=== PATIENT | female | born 1970 | race Caucasian/White ===

== ENCOUNTER 2017-12-13 09:38 | Emergency (ER) | payer OTHER ==
[~2017-12-13] VITALS: Ht 165.1 cm; Wt 55.0 kg
[2017-12-13 09:45] VITALS: BP 169/79; PULSE 92; RESP 18; TEMP 98.2; O2SAT 100
--- NOTE | 2017-12-13 10:49 | PD ---
HPI Chief Complaint: Cold / Flu Symptoms Time Seen by Provider: 10:46 Travel History International Travel<30 days: No Contact w/Intl Traveler<30days: No Traveled to known affect area: No History of Present Illness HPI Patient presents with complaints of sore throat, nonproductive cough general malaise and fever since . She did not get a flu shot. Denies nausea vomiting or diarrhea. No new rashes. No tobacco exposure. No history of lung disease. Unknown sick contacts. PFSH Past Medical History Cancer: Yes (CERVICAL) Cardiovascular Problems: No Diminished Hearing: No Endocrine: No Genitourinary: No Hepatitis: No Hiatal Hernia: No Hypertension: No Immune Disorder: No Musculoskeletal: No Neurologic: No Psychiatric: No Reproductive: No Respiratory: No ?: Not : 3 Para: 2 Past Surgical History Abdominal Surgery: No Body Medical Devices: NONE Cardiac Surgery: No Ear Surgery: No Endocrine Surgery: No Eye Surgery: No Genitourinary Surgery: No Gynecologic Surgery: Yes (2 CERVICAL BIOPSIES) Hysterectomy: Yes Oral Surgery: No Thoracic Surgery: No Other Surgery: Yes Social History Alcohol Use: Yes (social) Tobacco Use: No Substance Use: No Allergies-Medications (Allergen,Severity, Reaction): Coded Allergies: No Known Allergies (Unverified Adverse Reaction, Unknown, 12/13/17) Reported Meds & Prescriptions Reported Meds & Active Scripts Active No Active Prescriptions or Reported Medications Review of Systems General / Constitutional: Positive: Fever Eyes: No: Visual changes HENT: No: Headaches Cardiovascular: No: Chest Pain or Discomfort Respiratory: Positive: Cough, No: Shortness of Breath Gastrointestinal: No: Abdominal Pain Genitourinary: No: Dysuria Musculoskeletal: No: Pain Skin: No Rash Neurologic: No: Weakness Psychiatric: No: Depression Endocrine: No: Polydipsia Hematologic/Lymphatic: No: Easy Bruising Physical Exam Narrative GENERAL: Well-nourished, well-developed patient. SKIN: Focused skin assessment warm/dry. HEAD: Normocephalic. EYES: No scleral icterus. No injection or drainage. NECK: Supple, trachea midline. No JVD or lymphadenopathy Throat is erythematous no adenopathy no exudate. CARDIOVASCULAR: Regular rate and rhythm without murmurs, gallops, or rubs. RESPIRATORY: Breath sounds equal bilaterally. No accessory muscle use. GASTROINTESTINAL: Abdomen soft, non-tender, nondistended. MUSCULOSKELETAL: No cyanosis, or edema. BACK: Nontender without obvious deformity. No CVA tenderness. Data Data Last Documented VS Vital Signs Date Time Temp Pulse Resp B/P (MAP) Pulse Ox O2 Delivery O2 Flow Rate FiO2 12/13/17 11:07 91 20 129/80 (96) 99 12/13/17 09:45 98.2 Orders Orders Influenzae A/B Antigen (12/13/17 10:46) MDM Medical Decision Making Medical Screen Exam Complete: Yes Emergency Medical Condition: Yes Differential Diagnosis Pharyngitis, influenza, viral syndrome, pneumonia Narrative Course Assessment and plan discussed with and at bedside. Diagnosis Primary Impression: Acute pharyngitis Qualified Codes: J02.9 - Acute pharyngitis, unspecified Patient Instructions: General Instructions Additional Instructions: Rest fluids Motrin/Tylenol. Encouraged frequent handwashing, consider vitamin C and zinc to boost immune system Return extremity onset new symptoms. Follow- up with PCP Med/Other Pt SpecificInfo: Prescription(s) given Scripts Guaifenesin-Codeine Liq (Cheratussin AC Liq) 100-10 Mg/5 Ml Syrp 5-10 ML PO Q4H Y for COUGH AND COLD SYMPTOMS, #120 ML 0 Refills Do not exceed 6 doses/24 hrs. Prov: Maxx Levine MD 12/13/17 Azithromycin (Zithromax Z-Maurisio) 250 Mg Dspk 250 MG PO DIRECTED for Infection, #1 DSPK 0 Refills 500 MG (2 tabs) day 1, then 1 tab days 2-5. Prov: Maxx Levine MD 12/13/17 Disposition: 01 DISCHARGE HOME Condition: Good Maxx Levine MD Dec 13, 2017 10:49
[2017-12-13 11:07] VITALS: BP 129/80; PULSE 91; RESP 20; O2SAT 99
[2017-12-13] MEDS ORDERED: CHERSYP2 PO (11:51)
[2017-12-13] MEDS ORDERED: ZITHTAB PO (11:51)
[2017-12-13 12:08] VITALS: BP 129/80
== END 2017-12-13 12:16 | disposition home or self-care (01) ==
LOC: PHED 09:38
DX: J02.9 Acute pharyngitis, unspecified (principal); R05 Cough; R53.81 Other malaise; R50.9 Fever, unspecified
CPT/HCPCS: 87804; 99283